=== PATIENT | female | born 1995 | race Caucasian/White ===

== ENCOUNTER 2021-12-30 03:24 | Inpatient (IN) | payer BC, MEDICAID, OTHER ==
[2021-12-30] VITALS (7 sets, daily range): BP systolic 103–131; BP diastolic 62–76
[~2021-12-30] VITALS: Ht 163 cm; Wt 67.6 kg
[2021-12-30] MEDS ORDERED: PREN1TAB19 PO (03:58)
[2021-12-30] MEDS ORDERED: CITA20TA12 PO (03:58)
[2021-12-30] MEDS ORDERED: ACET-2267 PO (03:58)
[2021-12-30] MEDS ORDERED: BUTORPHANOL INJ 2 MG/ML (STADOL) VIAL IV PRN (05:00)
[2021-12-30] MEDS ORDERED: D5 LR IV SOLUTION 1,000 ML IV SCH (05:00)
[2021-12-30 05:36] LABS: BASOPHILS % (AUTO) 0 % (0-10); EOSINOPHILS # (AUTO) 0.1 10^3/uL (0.0-0.3); EOSINOPHILS % (AUTO) 1 % (0-10); HEMATOCRIT 32 % (35-52); HEMOGLOBIN 10.3 g/dL (11.5-16.0); LYMPHOCYTES # (AUTO) 2.4 10^3/uL (1.0-4.0); LYMPHOCYTES % (AUTO) 20 % (12-44); MEAN CORPUSCULAR HEMOGLOBIN 29 pg (25-34); MEAN CORPUSCULAR HGB CONC 33 g/dL (32-36); MEAN CORPUSCULAR VOLUME 88 fL (80-99); MEAN PLATELET VOLUME 11.3 fL (9.0-12.2); MONOCYTES # (AUTO) 0.6 10^3/uL (0.0-1.0); MONOCYTES % (AUTO) 5 % (0-12); NEUTROPHILS # (AUTO) 8.5 10^3/uL (1.8-7.8); NEUTROPHILS % (AUTO) 72 % (42-75); PLATELET COUNT 212 10^3/uL (130-400); WHITE BLOOD COUNT 11.8 10^3/uL (4.3-11.0)
[2021-12-30] MEDS ORDERED: CATHETER FLUSH 10 ML SYR IV SCH (06:00)
[2021-12-30] MEDS ORDERED: LACTATED RINGERS 1,000 ML IV ONE ×2 (07:00→08:15)
--- NOTE | 2021-12-30 07:24 | History & Physical-OB ---
OB - Chief Complaint & HPI Date/Time Date of Admission: Date of Admission: Dec 30, 2021 at 04:49 Date seen by a Provider: Dec 30, 2021 Time Seen by a Provider: 07:15 Chief Complaint/History OB-Reason for Admission/Chief: Rupture of Membranes Hx : 4 Hx Para: 3 Expected Date of Delivery: Jan 15, 2022 Gestational Age in Weeks: 37 Gestational Age in Days: 6 Admission Nurse Assessment Rev: Yes History of Labs GBS performed last week (awaiting results) Allergies and Home Medications Allergies Coded Allergies: No Known Drug Allergies (Unverified , 12/30/21) Patient Home Medication List Home Medication List Reviewed: Yes Acetaminophen (Tylenol Extra Strength) 500 Mg Tablet, 500-1,000 MG PO PRN, (Reported) Entered as Reported by: ROLAN ALAN on 12/30/21357 Last Action: New Order Citalopram Hydrobromide (Celexa) 20 Mg Tablet, 20 MG PO DAILY, (Reported) Entered as Reported by: ROLAN ALAN on 12/30/21357 Last Action: New Order Vit/Iron Fumarate/FA ( Vitamins Tablet) 28 Mg Iron-800 Mcg Tablet, 1 EACH PO DAILY, (Reported) Entered as Reported by: ROLAN ALAN on 12/30/21357 Last Action: New Order OB - History Hx of Present Care: Yes Ultrasounds: Normal mid trimester US Obstetrical Complications: None Medical Complications: None Obstetrical History Hx : 4 Hx Para: 3 Hx Total # of Abortions (Spona: 0 Patient Past Medical History no chronic medical problems Social History/Family History Alcohol Use: Denies Use Recreational Drug Use: No 2nd Hand Smoke Exposure: No OB - Admission Exam Physical Exam Vitals: Vital Signs 12/30/21 12/30/21 03:40 05:40 Temp 36.4 Pulse 77 Resp 18 B/P (MAP) 120/64 (82) Pulse Ox 98 O2 Delivery Room Air HEENT: Moist Membranes Heart: Rhythm Normal Lungs: Clear Abdomen: Gravid Cervical Dilatation: 4cm Effacement: 75% Station: -2 Membranes: Ruptured Amniotic Fluid: Clear Heart Rate: 120's Accelerations: Accelerations Present Assisted Variability: Average (6-25) Contractions on Admission: < 5 Minutes Apart Intensity: Moderate Labs Laboratory Tests Test 12/30/21 03:40 12/30/21 05:15 Range/Units Membranes Rupture POSITIVE White Blood Count 11.8 H 4.3-11.0 10^3/uL Red Blood Count 3.60 L 3.80-5.11 10^6/uL Hemoglobin 10.3 L 11.5-16.0 g/dL Hematocrit 32 L 35-52 % Mean Corpuscular Volume 88 80-99 fL Mean Corpuscular Hemoglobin 29 25-34 pg Mean Corpuscular Hemoglobin Concent 33 32-36 g/dL Red Cell Distribution Width 14.0 10.0-14.5 % Platelet Count 212 130-400 10^3/uL Mean Platelet Volume 11.3 9.0-12.2 fL Immature Granulocyte % (Auto) 1 % Neutrophils (%) (Auto) 72 42-75 % Lymphocytes (%) (Auto) 20 12-44 % Monocytes (%) (Auto) 5 0-12 % Eosinophils (%) (Auto) 1 0-10 % Basophils (%) (Auto) 0 0-10 % Neutrophils # (Auto) 8.5 H 1.8-7.8 10^3/uL Lymphocytes # (Auto) 2.4 1.0-4.0 10^3/uL Monocytes # (Auto) 0.6 0.0-1.0 10^3/uL Eosinophils # (Auto) 0.1 0.0-0.3 10^3/uL Basophils # (Auto) 0.0 0.0-0.1 10^3/uL Immature Granulocyte # (Auto) 0.2 H 0.0-0.1 10^3/uL OB - Assessment/Plan/Diagnosis Assessment Assessment: rupture of membranes (at term 37w5d gestation) Admission Dx 1. IUP at term 37w5d gestation Admission Status: Inpatient Order (span 2 midnights) Reason for Inpatient Admission: L&D Plan Plan: Expectant Management Other Plan -desires epidural -pitocin as necessary MANJEET SALAZAR MD Dec 30, 2021 07:24
[2021-12-30] MEDS ORDERED: fentaNYL 2 mcg/ml BUPIVA 0.125 100 ML ONE (07:28)
[2021-12-30] MEDS ORDERED: OXYTOCIN PRE-MIX DRIP 500 ML IV SCH ×2 (07:30→12:00)
[2021-12-30] MEDS ORDERED: fentaNYL INJ 100 MCG/2 ML AMP ONE (08:03)
[2021-12-30] MEDS ORDERED: BUPIVACAINE 0.25% 30 ML (SENSORCAINE) VIAL ONE (08:03)
[2021-12-30 08:09] LABS: BILIRUBIN,URINE NEGATIVE (NEGATIVE); CLARITY,URINE CLEAR; COLOR,URINE YELLOW; GLUCOSE, URINE (UA) NEGATIVE (NEGATIVE); KETONES,URINE NEGATIVE (NEGATIVE); LEUKOCYTE ESTERASE ,URINE 2+ (NEGATIVE); NITRITE,URINE POSITIVE (NEGATIVE); PROTEIN,URINE NEGATIVE (NEGATIVE)
[2021-12-30] MEDS ORDERED: fentaNYL 2 mcg/ml BUPIVA 0.125 100 ML IV SCH (08:15)
[2021-12-30] MEDS ORDERED: CATHETER FLUSH 10 ML SYR IV PRN (08:15)
[2021-12-30] MEDS ORDERED: diphenhydrAMINE 50 MG/ML INJ (BENADRYL) IV PRN (08:15)
[2021-12-30] MEDS ORDERED: ONDANSETRON 4 MG/2 ML (SDV) Z0FRAN IV PRN (08:15)
[2021-12-30] MEDS ORDERED: NALOXONE 0.4 MG/ML 1 ML (NARCAN) VIAL IV PRN ×2 (08:15→12:00)
[2021-12-30 08:27] LABS: AMPHETAMINE SCREEN, URINE NEGATIVE (NEGATIVE); BARBITURATE SCREEN URINE NEGATIVE (NEGATIVE); BENZODIAZEPINES SCREEN URINE NEGATIVE (NEGATIVE); CANNABINOID SCREEN, URINE NEGATIVE (NEGATIVE); COCAINE SCREEN URINE NEGATIVE (NEGATIVE); METHADONE STAT NEGATIVE (NEGATIVE); OPIATE SCREEN URINE NEGATIVE (NEGATIVE); OXYCODONE STAT NEGATIVE (NEGATIVE); PROPOXYPHENE STAT NEGATIVE (NEGATIVE); TRICYCLIC ANTIDEPRESSANTS SCRE NEGATIVE (NEGATIVE)
[2021-12-30 08:28] LABS: BACTERIA,URINE FEW /HPF
[2021-12-30] MEDS ORDERED: LIDOCAINE/EPI 2% 1:200,00 (XYLOCAINE) 10 ML VIAL ONE (11:10)
--- NOTE | 2021-12-30 11:52 | OB Labor & Delivery Record ---
L&D History Date of Service Date of Service: Dec 30, 2021 History Expected Date of Delivery: Jan 15, 2022 Gestational Age in Weeks: 37 Hx : 4 Hx Para: 4 Complications Events: Routine care Operative Indications (Cesarea: N/A-Vaginal Delivery Intrapartal Events: None Other Complications GBS negative L&D Stage1 Stage One Onset of Labor - Date: Dec 30, 2021 Onset of Labor - Time: 02:45 Monitors and Tracing Monitor Mode: External Heart Rate: 120 Monitor Decelerations: None Mcc Variability: Average (6-10) Short Term Variability: Present Presentation: Vertex Vital Signs VS - Last 72 Hours, by Label 12/30/21 12/30/21 12/30/21 12/30/21 03:32 03:32 03:40 05:40 Temp 37.2 37.2 37.2 36.4 Pulse 100 100 100 77 Resp 18 18 18 18 B/P (MAP) 131/75 (93) 120/64 (82) Pulse Ox 98 98 98 O2 Delivery Room Air Room Air Room Air Room Air 12/30/21 06:40 Pulse 75 Resp 18 B/P (MAP) 115/76 (89) O2 Delivery Room Air Signs of Distress by FHT Signs of Distress no Rupture of Membranes Spontaneous Ruture of Membrane: Yes Amniotic Membrane Rupture Time: 0245 Amniotic Membrane Fluid Desc.: Clear Vaginal Bleeding Description: None L&D Stage2 Stage Two Stage II Date: Dec 30, 2021 Stage II Time: 11:24 Monitors and Tracing Monitor Mode: Internal Heart Rate: 120 Monitor Accelerations: Uniform Monitor Decelerations: None Mcc Variability: Average (6-10) Short Term Variability: Present Position: Left Occiput Anterior Presentation: Vertex Signs of Distress by FHT Signs of Distress no Cord Descript/Complications Cord Vessel Description: 3 Vessels Delivery Type Infant Delivery Method: Spontaneous Vaginal Anterior Shoulder: Left Episiotomy/Perineal Laceration Laceraction(s)/Extensions: No Condition of Infant Delivery 1 minute Comment: 6 5 minute Comment: 9 Condition of Condition of : Living Exam: No Observed Abnormalities Resuscitation Resuscitation: N/A - Spontaneous Resp Resuscitation Comments: provided oxygen blowby L&D Stage3 Stage Three Stage III Date: Dec 30, 2021 Stage III Time: 11:29 Placenta Delivery Placenta Delivery: Spontaneous Delivery Summary Summary Estimated blood loss (mL): 150 Condition of Delivery Examined: Cervix Examined Post Hemorrhage: No Intervention Required none MANJEET SALAZAR MD Dec 30, 2021 11:52
[2021-12-30] MEDS ORDERED: TETANUS,DIPTH,PERTUSS P/F (BOOSTRIX) 0.5 ML VIAL IM ONE (12:00)
[2021-12-30] MEDS ORDERED: WITCH HAZEL(TUCKS) 40 EA JAR TOP PRN (12:00)
[2021-12-30] MEDS ORDERED: MEASLES,MUMPS,RUBELLA 1 EA INJ SQ ONE (12:00)
[2021-12-30] MEDS: IBUPROFEN 600 MG (MOTRIN) TAB PO SCH ×3 (12:00→23:02)
[2021-12-30] MEDS ORDERED: BENZOCAINE/MENTHOL (DERMOPLAST) 56 ML CAN TP PRN (12:00)
[2021-12-30] MEDS: ACETAMINOPHEN 500 MG TAB (TYLENOL) PO SCH ×2 (13:58→21:08)
[2021-12-30] MEDS: CATHETER FLUSH 10 ML SYR IV SCH (20:06)
[2021-12-30] MEDS: DOCUSATE SODIUM 100 MG (COLACE) CAP PO SCH (21:08)
[2021-12-31 05:56] VITALS: BP 105/59
[2021-12-31] MEDS: IBUPROFEN 600 MG (MOTRIN) TAB PO SCH ×2 (05:56→12:19)
[2021-12-31] MEDS: ACETAMINOPHEN 500 MG TAB (TYLENOL) PO SCH ×2 (05:56→12:20)
[2021-12-31 06:07] LABS: BASOPHILS % (AUTO) 0 % (0-10); EOSINOPHILS # (AUTO) 0.2 10^3/uL (0.0-0.3); EOSINOPHILS % (AUTO) 2 % (0-10); HEMATOCRIT 28 % (35-52); LYMPHOCYTES # (AUTO) 3.1 10^3/uL (1.0-4.0); LYMPHOCYTES % (AUTO) 31 % (12-44); MEAN CORPUSCULAR HEMOGLOBIN 29 pg (25-34); MEAN CORPUSCULAR HGB CONC 32 g/dL (32-36); MEAN CORPUSCULAR VOLUME 91 fL (80-99); MEAN PLATELET VOLUME 11.7 fL (9.0-12.2); MONOCYTES # (AUTO) 0.7 10^3/uL (0.0-1.0); MONOCYTES % (AUTO) 7 % (0-12); NEUTROPHILS % (AUTO) 59 % (42-75); PLATELET COUNT 173 10^3/uL (130-400); WHITE BLOOD COUNT 10.1 10^3/uL (4.3-11.0)
--- NOTE | 2021-12-31 07:17 | Discharge Inst-Women's Service ---
Discharge Inst-Women's Serv Depart Medication/Instructions Instructions May have ibuprofen over the counter 200mg and take 3 every 6hrs as needed for uterine cramping. Consults/Follow Up Additional Follow Up: Yes (your OB in 6 weeks) Activity Driving Instructions: No Driving for 1 Week Nothing Inside Vagina: No [place] (for 6 weeks) Return to The Hospital For: as below Symptoms to Report to : Bleeding Excessive, Fever Over 101 Degrees F, Vaginal Discharge Foul For Any Problems or Questions: Contact Your Physician MANJEET SALAZAR MD Dec 31, 2021 07:17
--- NOTE | 2021-12-31 07:19 | Discharge Summary ---
Diagnosis/Chief Complaint Date of Admission Dec 30, 2021 at 04:49 Date of Discharge December 31, 2021 Admission Diagnosis Admission Diagnosis 1. IUP at term 37 weeks Discharge Diagnosis 1. IUP at term 37 weeks Discharge Summary-OBS Procedures 1. Epidural per anesthesia 2. Discharge Physical Examination Allergies: Coded Allergies: No Known Drug Allergies (Unverified , 12/30/21) Vitals & I&Os Vital Sign - Last 12Hours Date Time Temp Pulse Resp B/P (MAP) Pulse Ox O2 Delivery O2 Flow Rate FiO2 12/31/21 05:56 36.4 66 18 105/59 (74) 100 Room Air General Appearance: No Acute Distress Respiratory: Clear to Auscultation Cardiovascular: Regular Rate Abdominal: Soft (with uterus firm) Hospital Course Was the Problem List Reviewed?: Yes HG on admit 10.3 and on 12/31 9.0 Labs Laboratory Tests 12/30/21 08:00: Urine Color YELLOW, Urine Clarity CLEAR, Urine pH 6.0, Urine Specific [place] <=1.005, Urine Protein NEGATIVE, Urine Glucose (UA) NEGATIVE, Urine Ketones NEGATIVE, Urine Nitrite POSITIVEH, Urine Bilirubin NEGATIVE, Urine Urobilinogen 1.0, Urine Leukocyte Esterase 2+H, Urine RBC (Auto) 3+H, Urine RBC 5-10H, Urine WBC 10-25H, Urine Squamous Epithelial Cells 5-10, Urine Crystals NONE, Urine Bacteria FEWH, Urine Casts NONE, Urine Mucus NEGATIVE, Urine Culture Indicated YES, Urine Opiates Screen NEGATIVE, Urine Oxycodone Screen NEGATIVE, Urine Methadone Screen NEGATIVE, Urine Propoxyphene Screen NEGATIVE, Urine Barbiturates Screen NEGATIVE, Ur Tricyclic Antidepressants Screen NEGATIVE, Urine Phencyclidine Screen NEGATIVE, Urine Amphetamines Screen NEGATIVE, Urine Methamphetamines Screen NEGATIVE, Urine Benzodiazepines Screen NEGATIVE, Urine Cocaine Screen NEGATIVE, Urine Cannabinoids Screen NEGATIVE 12/31/21 05:56: White Blood Count 10.1, Red Blood Count 3.11L, Hemoglobin 9.0L, Hematocrit 28L, Mean Corpuscular Volume 91, Mean Corpuscular Hemoglobin 29, Mean Corpuscular Hemoglobin Concent 32, Red Cell Distribution Width 14.3, Platelet Count 173, Mean Platelet Volume 11.7, Immature Granulocyte % (Auto) 1, Neutrophils (%) (Auto) 59, Lymphocytes (%) (Auto) 31, Monocytes (%) (Auto) 7, Eosinophils (%) (Auto) 2, Basophils (%) (Auto) 0, Neutrophils # (Auto) 6.0, Lymphocytes # (Auto) 3.1, Monocytes # (Auto) 0.7, Eosinophils # (Auto) 0.2, Basophils # (Auto) 0.0, Immature Granulocyte # (Auto) 0.1 Discharge Instructions to patient/family Please see electronic discharge instructions given to patient. Discharge Medications Reviewed and agree with Discharge Medication list on patient's Discharge Instruction sheet MANJEET SALAZAR MD Dec 31, 2021 07:19
[2021-12-31] MEDS: CATHETER FLUSH 10 ML SYR IV SCH ×2 (07:24→13:40)
[2021-12-31 10:00] VITALS: BP 104/68
[2021-12-31] MEDS: DOCUSATE SODIUM 100 MG (COLACE) CAP PO SCH (10:06)
[2021-12-31 12:20] VITALS: BP 110/67
[2021-12-31 13:01] VITALS: BP 110/67
== END 2021-12-31 13:50 | disposition home or self-care (01) | DRG 807 ==
LOC: EEVIPCON 03:24 → WSo 03:24 → LDRP 03:25 → WSo 04:48 → LDRP 04:49
PROVIDERS: ADMIT Family Medicine; ATTEND Family Medicine
PROC: 10E0XZZ Delivery of Products of Conception, External Approach (ICD-10-PCS; principal; 2021-12-30)
DX: O80 Encounter for full-term uncomplicated delivery (principal); Z37.0 Single live birth; Z3A.37 37 weeks gestation of pregnancy; Z28.21 Immunization not carried out because of patient refusal
CPT/HCPCS: 36415; 80306; 81000; 84112; 85025; 86850; 86900; 86901; 87077; 87088; 87186; 99212